=== PATIENT | female | born 1980 | race Caucasian/White ===

== ENCOUNTER → 2017-03-20 | Outpatient (CLI) | payer OTHER | END | disposition home or self-care (01) | LOC: CFH 08:17 | PROVIDERS: ATTEND Internal Medicine Cardiovascular Disease | DX: I08.1 Rheumatic disorders of both mitral and tricuspid valves (principal); I37.1 Nonrheumatic pulmonary valve insufficiency | CPT/HCPCS: 93306 ==

== ENCOUNTER 2018-02-18 16:51 | Inpatient (IN) | payer OTHER ==
[~2018-02-18] VITALS: Ht 182.9 cm; Wt 61.1 kg
[2018-02-18] MEDS ORDERED: ONDANSETRON ODT 4 MG ONE (17:07)
[2018-02-18] MEDS ORDERED: MORPHINE SULFATE 4 MG/ML, 1ML ONE ×3 (17:08→18:14)
[2018-02-18] MEDS: MORPHINE SULFATE 4 MG/ML, 1ML IVPush PRN ×2 (17:15→17:30)
[2018-02-18] MEDS ORDERED: PROPOFOL 10 MG/ML, 20ML ONE ×3 (17:20→18:22)
[2018-02-18] MEDS ORDERED: FENTANYL PF 100 MCG/2ML ONE ×2 (17:21→18:22)
[2018-02-18] MEDS ORDERED: CEFTRIAXONE PMX 1GM/50ML 50 ML ONE (17:22)
[2018-02-18] MEDS ORDERED: CEFAZOLIN PMX 1GM/50ML 50 ML ONE ×2 (17:28→17:31)
[2018-02-18] MEDS ORDERED: CEFAZOLIN PMX 1GM/50ML 50 ML IV ONE (17:30)
[2018-02-18] MEDS ORDERED: SERT50TA PO (17:40)
[2018-02-18 18:19] LABS: ALBUMIN 4.5 g/dL (3.4-5.0); ANION GAP 11 mmol/L (5-15); CALCIUM 9.3 mg/dL (8.5-10.1); CHLORIDE 109 mmol/L (98-107); CREATININE 0.97 mg/dL (0.55-1.02)
[2018-02-18 18:20] LABS: BASOPHILS # (AUTO) 0.04 x10^3/uL (0-0.1); BASOPHILS % (AUTO) 0 % (0-1); EOSINOPHILS # (AUTO) 0.18 x10^3/uL (0-0.4); EOSINOPHILS % (AUTO) 2 % (1-7); LYMPHOCYTES # (AUTO) 3.34 x10^3/uL (1-3.4); LYMPHOCYTES % (AUTO) 32 % (22-44); MD NO; MEAN CORPUSCULAR HEMOGLOBIN 31.6 pg (27.0-34.8); MEAN CORPUSCULAR HGB CONC 33.2 g/dL (32.4-35.8); MEAN CORPUSCULAR VOLUME 95.3 fL (80-100); MEAN PLATELET VOLUME 8.4 fL (7.4-10.4); MONOCYTES # (AUTO) 0.48 x10^3/uL (0.2-0.8); MONOCYTES % (AUTO) 5 % (2-9); NEUTROPHILS # (AUTO) 6.51 x10^3/uL (1.8-6.8); NEUTROPHILS % (AUTO) 62 % (42-75); PLATELET COUNT 357 x10^3/uL (130-400); RED BLOOD COUNT 4.78 x10^6/uL (3.82-5.3); RED CELL DISTRIBUTION WIDTH 12.6 % (9.6-15.2)
[2018-02-18] MEDS ORDERED: CEFAZOLIN 1,000 MG ONE ×2 (18:22)
[2018-02-18] MEDS ORDERED: MIDAZOLAM 1 MG/ML, 2ML ONE (18:22)
[2018-02-18] MEDS ORDERED: MORPHINE SULFATE 4 MG/ML, 1ML IVPush PRN (18:30)
[2018-02-18] MEDS ORDERED: ACYCLOVIR 800 MG in SODIUM CHLORIDE 0.9% 100 ML IV ONE (18:30)
[2018-02-18] MEDS ORDERED: SODIUM CHLORIDE FLUSH 10ML SYR IVF PRN (18:30)
[2018-02-18] MEDS ORDERED: ONDANSETRON ODT 4 MG PO ONE (18:30)
[2018-02-18] MEDS ORDERED: KETOROLAC 30 MG/1 ML ONE (18:36)
[2018-02-18] MEDS ORDERED: ONDANSETRON 2MG/ML, 2ML ONE (18:36)
[2018-02-18] MEDS ORDERED: SUCCINYLCHOLINE 20 MG/ML, 10ML ONE ×2 (18:43→18:50)
[2018-02-18] MEDS ORDERED: DEXAMETHASONE 4 MG/ML, 1ML ONE ×2 (18:51)
[2018-02-18] MEDS ORDERED: ADENOSINE 6 MG/2 ML IVPush ONE (19:00)
[2018-02-18] MEDS ORDERED: SODIUM CHLORIDE 0.9% 1,000ML IVBOLUS ONE (19:00)
[2018-02-18] MEDS ORDERED: FENTANYL PF 100 MCG/2ML IV PRN (19:30)
[2018-02-18] MEDS ORDERED: PROMETHAZINE 12.5 MG SUPP PR PRN (19:30)
[2018-02-18] MEDS ORDERED: OXYcodone 5 MG/5 ML ORAL.SOL UDC PO PRN (19:30)
[2018-02-18] MEDS ORDERED: ACETAMINOPHEN 325 MG TABLET PO PRN (19:30)
[2018-02-18] MEDS ORDERED: OXYcodone 5 MG/5 ML ORAL.SOL UDC ONE (20:08)
[2018-02-18] MEDS ORDERED: ACETAMINOPHEN 650 MG/20.3 ML UDC ONE (20:08)
[2018-02-18] MEDS: SODIUM CHLORIDE FLUSH 10ML SYR IVF SCH (21:00)
[2018-02-18] MEDS ORDERED: SENNA/DOCUSATE TABLET PO PRN (21:00)
[2018-02-18] MEDS ORDERED: MAGNESIUM HYDROXIDE 8%, 30ML UDC PO PRN (21:00)
[2018-02-18] MEDS ORDERED: LACTATED RINGERS 1,000 ML IV SCH (21:00)
[2018-02-18] MEDS ORDERED: ONDANSETRON 2MG/ML, 2ML IV PRN (21:00)
[2018-02-18] MEDS ORDERED: ALUMINUM/MAG/SIMETHICONE 30 ML UDC PO PRN (21:00)
[2018-02-18] MEDS: DOCUSATE 100 MG CAPSULE PO SCH (21:50)
[2018-02-18] MEDS: KETOROLAC 30 MG/1 ML IV SCH (21:50)
[2018-02-19] MEDS: OXYcodone IR 5MG TABLET PO PRN ×5 (00:18→17:03)
[2018-02-19] MEDS: CEFAZOLIN PMX 1GM/50ML 50 ML IVPB SCH ×3 (02:16→18:32)
[2018-02-19] MEDS: ACETAMINOPHEN 325 MG TABLET PO SCH ×3 (02:17→14:26)
[2018-02-19 04:16] VITALS: BP 100/58
[2018-02-19] MEDS: KETOROLAC 30 MG/1 ML IV SCH ×2 (05:20→12:59)
[2018-02-19 07:12] VITALS: BP 100/59
[2018-02-19] MEDS: SODIUM CHLORIDE FLUSH 10ML SYR IVF SCH (08:30)
[2018-02-19] MEDS: DOCUSATE 100 MG CAPSULE PO SCH (08:34)
[2018-02-19 14:00] VITALS: BP 92/59
[2018-02-19] MEDS ORDERED: OXYC5CAP2 PO (17:20)
[2018-02-19] MEDS ORDERED: IBUP-1223 PO (17:21)
[2018-02-19] MEDS ORDERED: ACET-1770 PO (17:28)
[2018-02-19] MEDS ORDERED: DOCU100C33 PO (17:28)
[2018-02-19 19:15] VITALS: BP 101/61
[2018-02-19] MEDS ORDERED: LACTATED RINGERS 1,000 ML IV SCH (21:00)
== END 2018-02-19 20:10 | disposition home or self-care (01) | DRG 465 ==
LOC: OR 18:24 → EDIP 18:25 → 4NOR 20:45
PROVIDERS: ADMIT Orthopaedic Surgery; ATTEND Orthopaedic Surgery
PROC: 0JBH0ZZ Excision of Left Lower Arm Subcutaneous Tissue and Fascia, Open Approach (ICD-10-PCS; 2018-02-18)
PROC: 0RSMXZZ Reposition Left Elbow Joint, External Approach (ICD-10-PCS; principal; 2018-02-18 18:30)
DX: S53.105A Unspecified dislocation of left ulnohumeral joint, initial encounter (principal); S80.211A Abrasion, right knee, initial encounter; W01.0XXA Fall on same level from slipping, tripping and stumbling without subsequent striking against object, initial encounter; Y93.89 Activity, other specified; Y92.89 Other specified places as the place of occurrence of the external cause; Y99.8 Other external cause status; Z88.8 Allergy status to other drugs, medicaments and biological substances
CPT/HCPCS: 36415; 76000; 80048; 82040; 84702; 85025; 93005; 96365; 96375; 96376; J0690; J1100; J1885; J2250; J2405; J2704; J3010; Q0162; J0330; J7030; J7120